=== PATIENT | male | born 1940 | race Caucasian/White ===

== ENCOUNTER 2020-12-05 10:33 | Inpatient (IN) | payer MEDICARE, OTHER ==
[~2020-12-05] VITALS: Ht 180.3 cm; Wt 120.0 kg
[~2020-12-05 10:33] MED LIST: CEFDINIR300 MG PO
[2020-12-05 11:01] LABS: HEMOGLOBIN 13.2 gm/dl (14.0-17.5); RED BLOOD COUNT 4.47 M/UL (4.20-5.50)
[2020-12-05] MEDS ORDERED: LEVALBUTER1.25 MG/0. NEB (17:17)
[2020-12-05] MEDS ORDERED: ATORVASTATIN CA40 MG PO (17:18)
[2020-12-05] MEDS ORDERED: ASPIRIN EC81 MG PO (17:18)
[2020-12-05] MEDS ORDERED: ADVAIR 250-501 EACH INH (17:19)
[2020-12-05] MEDS ORDERED: CARDIZEM CD300 MG PO (17:19)
[2020-12-05] MEDS ORDERED: GABAPENTIN600 MG PO (17:20)
[2020-12-05] MEDS ORDERED: FUROSEMIDE40 MG PO (17:20)
[2020-12-05] MEDS ORDERED: GLIPIZIDE10 MG PO (17:21)
[2020-12-05] MEDS ORDERED: NOVOLOG FL100 UNIT/1 INJ (17:22)
[2020-12-05] MEDS ORDERED: HYDROCODON-ACE1 EAC6 PO (17:22)
[2020-12-05] MEDS ORDERED: LOSARTAN POTAS100 MG PO (17:23)
[2020-12-05] MEDS ORDERED: TRESIBA FL100 UNIT/1 INJ (17:23)
[2020-12-05] MEDS ORDERED: PROTONIX40 MG PO (17:24)
[2020-12-05] MEDS ORDERED: VENTOLIN HFA 66.7 GM INH (17:24)
[2020-12-05] MEDS ORDERED: FENOFIBRATE160 MG PO (17:25)
[2020-12-05] MEDS ORDERED: LOSARTAN-HCTZ1 EAC1 PO (17:25)
[2020-12-05] MEDS ORDERED: LISINOPRIL10 MG PO (17:26)
[2020-12-05] MEDS ORDERED: FLOMAX 0.4 MG0.4 MG PO (17:27)
[2020-12-05 21:35] LABS: HEMOGLOBIN 11.3 gm/dl (14.0-17.5)
[2020-12-05 21:41] LABS: RED BLOOD COUNT 3.8 M/UL (4.20-5.50); WHITE BLOOD COUNT 10.2 K/UL (4.5-11.0)
[2020-12-06 03:52] LABS: HEMOGLOBIN 10.9 gm/dl (14.0-17.5); RED BLOOD COUNT 3.66 M/UL (4.20-5.50); WHITE BLOOD COUNT 10.5 K/UL (4.5-11.0)
[2020-12-06 15:07] LABS: WHITE BLOOD COUNT 19.3 K/UL (4.5-11.0)
[2020-12-07 03:54] LABS: HEMOGLOBIN 10.7 gm/dl (14.0-17.5); RED BLOOD COUNT 3.57 M/UL (4.20-5.50); WHITE BLOOD COUNT 8.6 K/UL (4.5-11.0)
[2020-12-08 08:05] LABS: HEMOGLOBIN 10.3 gm/dl (14.0-17.5); RED BLOOD COUNT 3.49 M/UL (4.20-5.50); WHITE BLOOD COUNT 7.5 K/UL (4.5-11.0)
--- NOTE | 2020-12-08 12:35 | NUR ---
Pt 02 is 80% on room air.
--- NOTE | 2020-12-08 12:43 | NUR ---
10:15 pt 02 down to 78 rt called settings changed on bipap. 02 up to 90. PULM on floor pt moved to icu and intubated.
[2020-12-09 05:09] LABS: HEMOGLOBIN 10.5 gm/dl (14.0-17.5); RED BLOOD COUNT 3.48 M/UL (4.20-5.50)
[2020-12-09 05:12] LABS: WHITE BLOOD COUNT 10.5 K/UL (4.5-11.0)
[2020-12-10 09:20] LABS: HEMOGLOBIN 10.3 gm/dl (14.0-17.5); RED BLOOD COUNT 3.45 M/UL (4.20-5.50); WHITE BLOOD COUNT 10.4 K/UL (4.5-11.0)
[2020-12-11 04:38] LABS: HEMOGLOBIN 9.9 gm/dl (14.0-17.5); RED BLOOD COUNT 3.32 M/UL (4.20-5.50); WHITE BLOOD COUNT 9.9 K/UL (4.5-11.0)
[2020-12-12 05:15] LABS: RED BLOOD COUNT 3.32 M/UL (4.20-5.50); WHITE BLOOD COUNT 8.4 K/UL (4.5-11.0)
[2020-12-13 05:32] LABS: HEMOGLOBIN 9.6 gm/dl (14.0-17.5); RED BLOOD COUNT 3.2 M/UL (4.20-5.50); WHITE BLOOD COUNT 7.8 K/UL (4.5-11.0)
[2020-12-14 05:10] LABS: HEMOGLOBIN 10.9 gm/dl (14.0-17.5); WHITE BLOOD COUNT 7.1 K/UL (4.5-11.0)
[2020-12-14 05:12] LABS: RED BLOOD COUNT 3.59 M/UL (4.20-5.50)
[2020-12-14 17:14] LABS: BUN/CREATININE RATIO 37 (0-10)
[2020-12-15 04:59] LABS: HEMOGLOBIN 10.8 gm/dl (14.0-17.5); RED BLOOD COUNT 3.53 M/UL (4.20-5.50); WHITE BLOOD COUNT 7.7 K/UL (4.5-11.0)
[2020-12-16 05:38] LABS: HEMOGLOBIN 10.8 gm/dl (14.0-17.5); RED BLOOD COUNT 3.57 M/UL (4.20-5.50); WHITE BLOOD COUNT 9.2 K/UL (4.5-11.0)
[2020-12-17 04:18] LABS: HEMOGLOBIN 10.5 gm/dl (14.0-17.5); RED BLOOD COUNT 3.46 M/UL (4.20-5.50); WHITE BLOOD COUNT 7.9 K/UL (4.5-11.0)
[2020-12-18 03:34] LABS: HEMOGLOBIN 10.8 gm/dl (14.0-17.5); RED BLOOD COUNT 3.55 M/UL (4.20-5.50); WHITE BLOOD COUNT 7.3 K/UL (4.5-11.0)
[2020-12-18 03:50] LABS: BUN/CREATININE RATIO 23 (0-10)
[2020-12-20 04:23] LABS: HEMOGLOBIN 9.4 gm/dl (14.0-17.5); WHITE BLOOD COUNT 6.6 K/UL (4.5-11.0)
[2020-12-20 04:30] LABS: RED BLOOD COUNT 3.11 M/UL (4.20-5.50)
[2020-12-20] MEDS ORDERED: FENOFIBRATE145 MG PO (13:38)
[2020-12-20] MEDS ORDERED: DIGOXIN250 MCG PO (13:38)
[2020-12-20] MEDS ORDERED: ELIQUIS 5 MG TAB5 MG PO (13:38)
[2020-12-20] MEDS ORDERED: AMIODARONE HCL200 MG PO (13:38)
[2020-12-20] MEDS ORDERED: MYCOSTATIN100000 UTS PO (13:38)
[2020-12-20] MEDS ORDERED: TRESIBA FL100 UNIT/1 INJ (13:44)
== END 2020-12-20 19:00 | disposition home health service (06) | DRG 208 ==
LOC: ER1 10:33 → PROG CARE 12:53 → CDU 12:53 → CCU 12:53 → PROG CARE 12-06 13:34 → CCU 12-08 10:03 → PROG CARE 12-17 15:19
PROVIDERS: Family Medicine; Internal Medicine; Internal Medicine Pulmonary Disease; Physician Assistant Medical; Surgery; ADMIT Internal Medicine
PROC: 5A09457 Assistance with Respiratory Ventilation, 24-96 Consecutive Hours, Continuous Positive Airway Pressure (ICD-10-PCS; 2020-12-05)
PROC: B24BZZ4 Ultrasonography of Heart with Aorta, Transesophageal (ICD-10-PCS; 2020-12-06)
PROC: 5A1945Z Respiratory Ventilation, 24-96 Consecutive Hours (ICD-10-PCS; 2020-12-08)
PROC: 0BH17EZ Insertion of Endotracheal Airway into Trachea, Via Natural or Artificial Opening (ICD-10-PCS; 2020-12-08)
PROC: 3E033XZ Introduction of Vasopressor into Peripheral Vein, Percutaneous Approach (ICD-10-PCS; 2020-12-08)
PROC: 0B9L8ZZ Drainage of Left Lung, Via Natural or Artificial Opening Endoscopic (ICD-10-PCS; 2020-12-08)
PROC: 0B9L8ZX Drainage of Left Lung, Via Natural or Artificial Opening Endoscopic, Diagnostic (ICD-10-PCS; 2020-12-08)
PROC: 5A0945A Assistance with Respiratory Ventilation, 24-96 Consecutive Hours, High Flow/Velocity Cannula (ICD-10-PCS; 2020-12-12)
PROC: 0DH63UZ Insertion of Feeding Device into Stomach, Percutaneous Approach (ICD-10-PCS; principal; 2020-12-19)
PROC: 3E0G76Z Introduction of Nutritional Substance into Upper GI, Via Natural or Artificial Opening (ICD-10-PCS; 2020-12-19)
DX: J18.9 Pneumonia, unspecified organism (principal); J96.21 Acute and chronic respiratory failure with hypoxia; Z20.822 Contact with and (suspected) exposure to COVID-19; J96.22 Acute and chronic respiratory failure with hypercapnia; I21.A1 Myocardial infarction type 2; I50.43 Acute on chronic combined systolic (congestive) and diastolic (congestive) heart failure; A41.9 Sepsis, unspecified organism; R65.21 Severe sepsis with septic shock; J44.1 Chronic obstructive pulmonary disease with (acute) exacerbation; J44.0 Chronic obstructive pulmonary disease with (acute) lower respiratory infection; J98.19 Other pulmonary collapse; N17.9 Acute kidney failure, unspecified; I13.0 Hypertensive heart and chronic kidney disease with heart failure and stage 1 through stage 4 chronic kidney disease, or unspecified chronic kidney disease; E87.0 Hyperosmolality and hypernatremia; E11.22 Type 2 diabetes mellitus with diabetic chronic kidney disease; N40.0 Benign prostatic hyperplasia without lower urinary tract symptoms; E78.5 Hyperlipidemia, unspecified; K21.9 Gastro-esophageal reflux disease without esophagitis; R53.81 Other malaise; I44.7 Left bundle-branch block, unspecified; I07.1 Rheumatic tricuspid insufficiency; I16.0 Hypertensive urgency; N18.30 Chronic kidney disease, stage 3 unspecified; I25.10 Atherosclerotic heart disease of native coronary artery without angina pectoris; I25.5 Ischemic cardiomyopathy; I48.0 Paroxysmal atrial fibrillation; Z79.01 Long term (current) use of anticoagulants; Z95.1 Presence of aortocoronary bypass graft; Z95.5 Presence of coronary angioplasty implant and graft; Z87.11 Personal history of peptic ulcer disease; Z79.4 Long term (current) use of insulin; Z79.82 Long term (current) use of aspirin; Z79.899 Other long term (current) drug therapy
CPT/HCPCS: ECHO; 36415; 36600; 71045; 74018; 74230; 80048; 80053; 81001; 82550; 82553; 82803; 82962; 83036; 83605; 83735; 83874; 83880; 84484; 85025; 85027; 85610; 85730; 87040; 87070; 87077; 87186; 87205; 92526; 92610; 92611-GN; 93005; 93306; 94002; 94003; 94640; 94660; 94664; 94667; 94668; 94760; 96374; 97110-GP-CQ; 97162; 97166; 97530; 97530-GP-CQ; 99285; J0456; J0692; J0696; J1160; J1644; J1650; J1940; J2060; J2405; J2704; J7030; J7070; U0002